=== PATIENT | female | born 1950 | race Caucasian/White ===

== ENCOUNTER 2024-02-04 11:03 | Emergency (ER) | payer MEDICARE, BC ==
[~2024-02-04] VITALS: Ht 157.5 cm; Wt 76.0 kg
[2024-02-04 11:35] VITALS: BP 132/75; PULSE 73; RESP 16; TEMP 97.4; O2SAT 96
== END 2024-02-04 14:22 | disposition left against medical advice (07) ==
LOC: ER 11:03
DX: M54.9 Dorsalgia, unspecified (principal); Z53.21 Procedure and treatment not carried out due to patient leaving prior to being seen by health care provider